=== PATIENT | female | born 1955 | race Hispanic/Latino ===

== ENCOUNTER → 2023-12-15 | Outpatient (CLI) | payer OTHER | END | disposition home or self-care (01) | LOC: RAH 08:43 | PROVIDERS: ATTEND Internal Medicine Cardiovascular Disease | DX: I44.7 Left bundle-branch block, unspecified (principal); I25.10 Atherosclerotic heart disease of native coronary artery without angina pectoris; R06.09 Other forms of dyspnea | CPT/HCPCS: 78452; 93017; A9500 ×2; 96374 ==

== ENCOUNTER → 2025-02-21 | Outpatient (CLI) | payer OTHER ==
[~2025-02-21] MED LIST: IOHEXOL-350 75 ML VIAL IV ONE
--- NOTE | 2025-02-22 13:29 | HMCIMG ---
EXAM: CT Abdomen and Pelvis with and without IV contrast CLINICAL HISTORY: Cyst of kidney, acquired TECHNIQUE: Axial computed tomography images of the abdomen and pelvis with and without intravenous contrast. CONTRAST: with and without intravenous contrast. COMPARISON: None provided. FINDINGS: LUNG BASES: The lung bases appear clear. No pleural effusions are seen. LIVER: Enlarged with diffuse fatty infiltration.. GALLBLADDER AND BILE DUCTS: The gallbladder appears within normal limits. No radioopaque gallstones are seen. No biliary ductal dilatation is evident. PANCREAS: Unremarkable. SPLEEN: Unremarkable. ADRENAL GLANDS: Unremarkable. KIDNEYS, URETERS, AND BLADDER: Few tiny hypodense cystic lesions in the left kidney, average measuring 3-4 mm. 1.4 x 1.7 cm borderline enhancing hypodense lesion in the lower pole of the left kidney, reaching up to the surface. This likely represents a complex cyst. There is no hydronephrosis or hydroureter. No urinary calculi are seen. STOMACH AND BOWEL: Unremarkable appearance of the stomach and bowel. No evidence of bowel obstruction. No evidence suggesting enteritis or colitis. APPENDIX: Normal appendix. PERITONEUM: No free fluid. No free air. LYMPH NODES: No lymphadenopathy is evident. REPRODUCTIVE: Hysterectomy. VASCULATURE: Atherosclerotic calcifications in the aorta and its major branches. No evidence of abdominal aortic aneurysm. BONES: No aggressive appearing osseous lesion. No acute osseous pathology evident. IMPRESSION: 1. 1.4 x 1.7 cm borderline enhancing hypodense lesion in the lower pole of the left kidney, reaching up to the surface. This likely represents a complex cyst. 6-12 month follow up MRI recommended for further characterization. 2. No other acute findings. 3. Enlarged, fatty liver. /[place]
== END | disposition home or self-care (01) ==
LOC: RAH 08:38
PROVIDERS: ATTEND Student in an Organized Health Care Education/Training Program
DX: N28.1 Cyst of kidney, acquired (principal); K76.0 Fatty (change of) liver, not elsewhere classified; I70.0 Atherosclerosis of aorta; Z90.710 Acquired absence of both cervix and uterus
CPT/HCPCS: 74178; Q9967